=== PATIENT | male | born 1950 | race Caucasian/White ===

== ENCOUNTER → 2024-10-26 08:14 | Outpatient (BNVA) | payer MEDICARE, SELFPAY | PROVIDERS: PCP Internal Medicine; Referring Provider Internal Medicine; Visit Provider Podiatrist | DX: B35.3 Tinea pedis (principal); B35.1 Tinea unguium; I83.90 Asymptomatic varicose veins of unspecified lower extremity; L60.3 Nail dystrophy; M76.61 Achilles tendinitis, right leg; L84 Corns and callosities | CPT/HCPCS: 99204; 11755 ==

== ENCOUNTER → 2024-11-23 08:31 | Outpatient (BNVA) | payer MEDICARE, SELFPAY | PROVIDERS: PCP Internal Medicine; Referring Provider Internal Medicine; Visit Provider Podiatrist | DX: B35.3 Tinea pedis (principal); B35.1 Tinea unguium; I83.93 Asymptomatic varicose veins of bilateral lower extremities; L60.3 Nail dystrophy; M76.61 Achilles tendinitis, right leg; L84 Corns and callosities | CPT/HCPCS: 99213 ==